=== PATIENT | male | born 2000 ===

== ENCOUNTER 2021-12-22 01:29 | Emergency (ER) | payer OTHER ==
[2021-12-22 05:36] LABS: Urine Blood Negative (Negative); Urine Glucose Negative (Negative); Urine Protein Negative (Negative); Urine pH 7.5 (5.0-7.0)
[2021-12-22 05:38] LABS: Absolute Lymphocytes (CBC) 2.9 K/uL (0.7-4.9); Hematocrit 44.7 % (39.6-49.0); Lymphocytes % 47.7 % (15.3-44.8); MPV 9.2 fL (7.6-11.3); RBC Red Blood Cell Count 5.37 M/uL (4.33-5.43)
[2021-12-22 05:53] LABS: Barbiturates NEGATIVE (NEGATIVE); Benzodiazepines NEGATIVE (NEGATIVE); Cocaine NEGATIVE (NEGATIVE); METHAMPHETAM POSITIVE (NEGATIVE); Methadone NEGATIVE (NEGATIVE); Opiates NEGATIVE (NEGATIVE); Phencyclidine NEGATIVE (NEGATIVE); THC Cannibis NEGATIVE (NEGATIVE)
[2021-12-22 06:02] LABS: ALT/SGPT 32 U/L (12-78); AST/SGOT 23 U/L (15-37); Albumin 4.1 g/dL (3.4-5.0); Alkaline Phosphatase 74 U/L (45-117); BUN Blood Urea Nitrogen 11 mg/dL (7-18); Bicarbonate 25 mmol/L (21-32); Bilirubin Direct 0.1 mg/dL (0-0.2); Bilirubin Total 0.5 mg/dL (0.2-1.0); Glomerular Filtration Rate 127 ml/min (=/>90); Glucose Level 83 mg/dL (74-106); Protein, Total 7.8 g/dL (6.4-8.2); Sodium Level 138 mmol/L (136-145)
[2021-12-22 06:20] LABS: Troponin High Sensitivity 4.5 pg/mL (<58.9)
--- NOTE | 2021-12-22 07:04 | EDPHYS ---
Physician Documentation [facility] Name: Siva Patel Age: 21 yrs Sex: Male : 2000 Arrival Date: 12/22/2021 Time: 01:31 Bed 19 Private MD: ED Physician Emil Wong HPI: 12/22 04:10 This 21 yrs old Male presents to ER via Ambulatory with complaints of Anxiety, Closed mh7 Head Injury-Adult, Altered Mental Status. 04:10 The patient presents to the emergency department with anxiety, over unknown mh7 circumstances. 04:10 Onset: The symptoms/episode began/occurred last night. mh7 04:10 Past psychiatric history: Prior diagnosis: ADHD. Associated signs and symptoms: mh7 Pertinent negatives: abdominal pain, chest pain, chills, delusions, depression, fever, hallucinations, headache, homicidal ideation, nausea, night sweats, palpitations, paranoia, shortness of breath, substance abuse, suicide ideation, tremor, vomiting. Severity of symptoms: At their worst the symptoms were moderate last night, in the emergency department the symptoms have improved moderately. States that he had a bad day yesterday and was feeling anxious. Admits to hitting his head against his bathroom wall due to frustration. Denies any LOC. Denies any suicidal/homicidal ideation. Denies any auditory or visual hallucinations.. Historical: - Allergies: 01:43 Cats; jb4 01:43 NKDA; jb4 - Home Meds: 01:43 Adderall XR Oral [Active]; jb4 - PMHx: 01:43 ADHD; jb4 - PSHx: 01:43 None; jb4 - Immunization history:: Adult Immunizations up to date. - Social history:: Patient/guardian denies using alcohol, street drugs, Smoking status: Patient denies any tobacco usage or history of. ROS: 04:10 Constitutional: Negative for fever, chills, and weight loss, Eyes: Negative for injury, mh7 pain, redness, and discharge, ENT: Negative for injury, pain, and discharge, Neck: Negative for injury, pain, and swelling, Cardiovascular: Negative for chest pain, palpitations, and edema, Respiratory: Negative for shortness of breath, cough, wheezing, and pleuritic chest pain, Abdomen/GI: Negative for abdominal pain, nausea, vomiting, diarrhea, and constipation, Back: Negative for injury and pain, : Negative for injury, bleeding, discharge, and swelling, MS/Extremity: Negative for injury and deformity, Skin: Negative for injury, rash, and discoloration, Neuro: Negative for headache, weakness, numbness, tingling, and seizure, Psych: Negative for depression, anxiety, suicide ideation, homicidal ideation, and hallucinations, Allergy/Immunology: Negative for hives, rash, and allergies, Endocrine: Negative for neck swelling, polydipsia, polyuria, polyphagia, and marked weight changes, Hematologic/Lymphatic: Negative for swollen nodes, abnormal bleeding, and unusual bruising. Exam: 04:10 Constitutional: This is a well developed, well nourished patient who is awake, alert, mh7 and in no acute distress. 04:10 Eyes: Pupils equal round and reactive to light, extra-ocular motions intact. Lids and lashes normal. Conjunctiva and sclera are non-icteric and not injected. Cornea within normal limits. Periorbital areas with no swelling, redness, or edema. ENT: Nares patent. No nasal discharge, no septal abnormalities noted. Tympanic membranes are normal and external auditory canals are clear. Oropharynx with no redness, swelling, or masses, exudates, or evidence of obstruction, uvula midline. Mucous membranes moist. Neck: Trachea midline, no thyromegaly or masses palpated, and no cervical lymphadenopathy. Supple, full range of motion without nuchal rigidity, or vertebral point tenderness. No Meningismus. Chest/axilla: Normal chest wall appearance and motion. Nontender with no deformity. No lesions are appreciated. Cardiovascular: Regular rate and rhythm with a normal S1 and S2. No gallops, murmurs, or rubs. Normal PMI, no JVD. No pulse deficits. Respiratory: Lungs have equal breath sounds bilaterally, clear to auscultation and percussion. No rales, rhonchi or wheezes noted. No increased work of breathing, no retractions or nasal flaring. Abdomen/GI: Soft, non-tender, with normal bowel sounds. No distension or tympany. No guarding or rebound. No evidence of tenderness throughout. Back: No spinal tenderness. No costovertebral tenderness. Full range of motion. Skin: Warm, dry with normal turgor. Normal color with no rashes, no lesions, and no evidence of cellulitis. MS/ Extremity: Pulses equal, no cyanosis. Neurovascular intact. Full, normal range of motion. Neuro: Awake and alert, GCS 15, oriented to person, place, time, and situation. Cranial nerves II-XII grossly intact. Motor strength 5/5 in all extremities. Sensory grossly intact. Cerebellar exam normal. Normal gait. Psych: Awake, alert, with orientation to person, place and time. Behavior, mood, and affect are within normal limits. 04:10 Head/face: Noted is tenderness, that is moderate, of the top of head and left temporal area. Vital Signs: 01:37 BP 140 / 109; Pulse 86; Resp 16; Temp 98.3(O); Pulse Ox 100% on R/A; Height 6 ft. 4 in. jb4 (193.04 cm) (R); Pain 4/10; 07:06 BP 123 / 73; Pulse 63; ke1 Gillespie Coma Score: 01:37 Eye Response: spontaneous(4). Verbal Response: confused(4). Motor Response: obeys jb4 commands(6). Total: 14. MDM: 07:00 Differential diagnosis: drug withdrawal. acute psychotic break, depression, psychosis mh7 secondary to non-compliance. Data reviewed: vital signs, nurses notes, lab test result(s), CBC, electrolytes, EKG, radiologic studies, CT scan. Data interpreted: Pulse oximetry: on room air is 100 %. Interpretation: normal. Counseling: I had a detailed discussion with the patient and/or guardian regarding: the historical points, exam findings, and any diagnostic results supporting the discharge/admit diagnosis, the presence of at least one elevated blood pressure reading (>120/80) during this emergency department visit, lab results, radiology results, the need for outpatient follow up, to return to the emergency department if symptoms worsen or persist or if there are any questions or concerns that arise at home. Response to treatment: the patient's symptoms have resolved after treatment, the patient's blood pressure is in an acceptable range, mental status has returned to baseline, the patient no longer shows bradycardia, the patient is not short of breath, the patient is not tachycardic, the patient's pain is gone, the patient's temperature has normalized. 07:03 Patient medically screened. [facility] 12/22 04:39 Order name: Acetaminophen; Complete Time: 07:00 12/22 04:39 Order name: Basic Metabolic Panel; Complete Time: 07:00 12/22 04:39 Order name: CBC with Diff; Complete Time: 05:55 [facility] 12/22 04:39 Order name: ETOH Level; Complete Time: 05:55 [facility] 12/22 04:39 Order name: Hepatic Function; Complete Time: 07:00 12/22 04:39 Order name: PT-INR 12/22 04:38 Order name: CT Head Brain wo Cont 12/22 04:39 Order name: Ptt, Activated 12/22 04:39 Order name: Salicylate; Complete Time: 07:00 12/22 04:39 Order name: Urine Drug Screen; Complete Time: 05:55 [facility] 12/22 04:39 Order name: EKG; Complete Time: 04:39 12/22 05:36 Order name: Urine Dipstick-Ancillary; Complete Time: 05:55 [facility] 12/22 05:55 Order name: Creatine Phosphokinase; Complete Time: 07:00 [facility] 12/22 05:55 Order name: Troponin High Sensitivity; Complete Time: 07:00 [facility] 12/22 04:39 Order name: EKG - Nurse/Tech; Complete Time: 05:52 12/22 04:39 Order name: IV Saline Lock; Complete Time: 05:38 12/22 04:39 Order name: Labs collected and sent; Complete Time: 05:38 12/22 04:39 Order name: Suicide Precautions; Complete Time: 05:38 12/22 04:39 Order name: Suicide Screening (Novi); Complete Time: 05:38 12/22 04:39 Order name: Urine Dipstick-Ancillary (obtain specimen); Complete Time: 05:38 12/22 07:16 Order name: EKG Electrocardiogram EDMS Administered Medications: No medications were administered Disposition Summary: 12/22/21 07:03 Discharge Ordered Location: Home [facility] Problem: new [facility] Symptoms: have improved [facility] Condition: Stable [facility] Diagnosis - Adjustment disorder with anxiety [facility] - Contusion of unspecified part of head [facility] Followup: [facility] - With: Private Physician - When: 1 - 2 days - Reason: Worsening of condition, Recheck today's complaints, Continuance of care, Re-evaluation by your physician Discharge Instructions: - Discharge Summary Sheet 7 - Adjustment Disorder, Adult mh7 - Facial or Scalp Contusion, [id number] [facility] Forms: - Medication Reconciliation Form [facility] - Thank You Letter 7 - Antibiotic Education 7 - Prescription Opioid Use [facility] Signatures: Dispatcher [employer] EDUbaldo Neri RN RN jb4 Emil Wong MD MD mh7 Quique Nicholson RN RN ke1 Corrections: (The following items were deleted from the chart) 05:23 05:21 This 21 yrs old Male presents to ER via Ambulatory with complaints of Anxiety, mh7 Closed Head Injury-Adult, Altered Mental Status. [facility]
--- NOTE | 2021-12-22 07:04 | ER ---
Nurse's Notes [facility] Name: Siva Patel Age: 21 yrs Sex: Male : 2000 Arrival Date: 12/22/2021 Time: 01:31 Bed 19 Private MD: Diagnosis: Adjustment disorder with anxiety;Contusion of unspecified part of head Presentation: 12/22 01:37 Chief complaint: Patient states: I just had a bad night. I did not hit my head. Friend arunKatharina and/or Co-Worker states: He had a major panic attack, he ran to the bathroom. He was screaming we heard a lot of banging. He was holding the door shut against us. He finally let us in. He appeared to have ripped out some of his hair. This is the first time he has ever had one this bad. He has not spoken since. Coronavirus screen: At this time, the client does not indicate any symptoms associated with coronavirus-19. Ebola Screen: No symptoms or risks identified at this time. Mechanism of Injury: Mechanism of Injury: No head injury observed by friends, pt denying hitting his head.. Initial Sepsis Screen: Does the patient meet any 2 criteria? No. Patient's initial sepsis screen is negative. Does the patient have a suspected source of infection? No. Patient's initial sepsis screen is negative. Risk Assessment: Do you want to hurt yourself or someone else? Patient reports desire/thoughts of hurting themselves or someone else. Provider notified. Onset of symptoms was December 22, 2021. Transition of care: patient was not received from another setting of care. 01:37 Method Of Arrival: Ambulatory 4 01:37 Acuity: GENE 2 jb4 07:36 Mechanism of Injury: resulted from a direct blow. ap3 Triage Assessment: 01:43 General: Appears in no apparent distress. comfortable, Behavior is calm, flat. Pain: jb4 Complains of pain in headache Pain does not radiate. Pain currently is 4 out of 10 on a pain scale. Neuro: Level of Consciousness is awake, alert, obeys commands, Oriented to person, situation, Reports headache. Cardiovascular: Patient's skin is warm and dry. Respiratory: Airway is patent Respiratory effort is even, unlabored, Respiratory pattern is regular, symmetrical. Derm: Skin Skin is pink, warm \T\ dry. Musculoskeletal: Circulation, motion, and sensation intact. Range of motion: intact in all extremities. Historical: - Allergies: 01:43 Cats; jb4 01:43 NKDA; jb4 - Home Meds: :43 Adderall XR Oral [Active]; jb4 - PMHx: 01:43 ADHD; jb4 - PSHx: 01:43 None; jb4 - Immunization history:: Adult Immunizations up to date. - Social history:: Patient/guardian denies using alcohol, street drugs, Smoking status: Patient denies any tobacco usage or history of. Screenin:43 Abuse screen: Denies threats or abuse. Nutritional screening: No deficits noted. ke1 Tuberculosis screening: No symptoms or risk factors identified. Fall Risk None identified. Assessment: 02:49 General: Appears in no apparent distress. Behavior is flat, quiet. Neuro: Kwan ke1 Agitation-Sedation Scale (RASS): 0 - Alert and Calm Level of Consciousness is awake, alert. 05:36 Reassessment: Patient appears in no apparent distress at this time. General: Behavior ke1 is calm, inappropriate for age, Patient cries because of IV insertion, afraid of needle.. 07:46 General: patient given his personal belongings from security. nurse and patient ap3 verified all belongings were present. patient given privacy to dress into his own clothing and make a phone call for a ride. . Vital Signs: 01:37 BP 140 / 109; Pulse 86; Resp 16; Temp 98.3(O); Pulse Ox 100% on R/A; Height 6 ft. 4 in. jb4 (193.04 cm) (R); Pain 4/10; 07:06 BP 123 / 73; Pulse 63; ke1 Mackenzie Coma Score: 01:37 Eye Response: spontaneous(4). Verbal Response: confused(4). Motor Response: obeys jb4 commands(6). Total: 14. ED Course: 01:31 Patient arrived in ED. bp1 01:43 Triage completed. jb4 01:47 Arm band placed on right wrist. jb4 02:25 Quique Nicholson, RN is Primary Nurse. ke1 02:25 Safety Checks: Personal items have been removed. The door is open or patient has been ke1 placed in a hallway bed/chair. A family member and/or friend is present and encouraged to stay. Sitter present at this time. Other: roommate with patient. 02:43 Bed in low position. ke1 02:59 Emil Wong MD is Attending Physician. 7 04:58 CT Head Brain wo Cont In Process Unspecified. EDMS 05:36 Inserted saline lock: 20 gauge in right antecubital area, using aseptic technique. ke1 07:36 No provider procedures requiring assistance completed. IV discontinued, intact, ap3 bleeding controlled, No redness/swelling at site. Pressure dressing applied. Administered Medications: No medications were administered Medication: 07:36 VIS not applicable for this client. ap3 Outcome: 07:03 Discharge ordered by . [facility] 07:48 Discharged to home ambulatory. ap3 07:48 Condition: good 07:48 Discharge instructions given to patient, Instructed on discharge instructions, follow up and referral plans. safety practices, following up with therapist Demonstrated understanding of instructions, follow-up care. 08:31 Patient left the ED. ap3 Signatures: Dispatcher [employer] EDOR Ubaldo Goldberg, RN RN jb4 Molly Sanchez RN RN ap3 Yas Dumont [facility] Emil Wong MD MD 7 Quique Nicholson RN RN ke1
[2021-12-22 07:27] LABS: Protime INR 1.08
[2021-12-22 08:38] VITALS: TEMP 98.3; O2SAT 100
[2021-12-22 08:40] VITALS: BP 123/73
--- NOTE | 2021-12-22 13:32 | EKG ---
Test Date: 2021-12-22 Test Time: 05:43:48 Director Of State: RONA MEASUREMENT RESULTS: Intervals: Rate: 52 SD: 182 QRSD: 102 QT: 426 QTc: 396 [place]: P: -6 SD: 182 QRS: 90 T: 80 INTERPRETIVE STATEMENTS: Sinus bradycardia with sinus arrhythmia Rightward axis ST elevation, consider early repolarization, pericarditis, or injury Nonspecific ST abnormality Abnormal ECG No previous ECG available for comparison Electronically Signed On 12-22-21 13:31:33 CDT by Giovani Hooker
--- NOTE | 2021-12-22 13:32 | EKG ---
Test Date: 2021-12-22 Test Time: 05:44:14 Service Planner: RONA MEASUREMENT RESULTS: Intervals: Rate: 57 UT: 192 QRSD: 104 QT: 428 QTc: 416 [place]: P: 43 UT: 192 QRS: 90 T: 80 INTERPRETIVE STATEMENTS: Sinus bradycardia with sinus arrhythmia Rightward axis ST elevation, consider early repolarization, pericarditis, or injury Nonspecific ST abnormality Abnormal ECG Compared to ECG 12/22/2021 05:43:48 No significant changes Electronically Signed On 12-22-21 13:31:26 CDT by Giovani Hooker
--- NOTE | 2021-12-22 16:07 | RAD REPORT ---
EXAM DESCRIPTION: CT - Head Brain Wo Cont - 12/22/2021 6:35 am CLINICAL HISTORY: The patient is 21 years old and is Male; Head trauma, skull fracture or hematoma TECHNIQUE: Axial computed tomography images of the head/brain without intravenous contrast. Sagitt al and coronal reformatted images were created and reviewed. This CT exam was performed using one o r more of the following dose reduction techniques: automated exposure control, adjustment of the mA and/or kV according to patient size, and/or use of iterative reconstruction technique. COMPARISON: No relevant prior studies available. FINDINGS: Brain: Unremarkable. No hemorrhage. No significant white matter disease. No edema. Ventricles: Unremarkable. No ventriculomegaly. Bones/joints: Unremarkable. No acute skull fracture. Soft tissues: Unremarkable. Sinuses: Unremarkable as visualized. No acute sinusitis. Mastoid air cells: No significant mastoid fluid. IMPRESSION: No intracranial hemorrhage. No acute skull fracture. Electronically signed by: Amina Saenz MD 12/22/2021 5:32 AM CDT Due to temporary technical issues with the PACS/Fluency reporting system, reports are being signed by the in house radiologist without review as a courtesy to ensure prompt reporting. The interpreting r adiologist is fully responsible for the content of the report.
== END 2021-12-22 08:31 | disposition home or self-care (01) ==
LOC: ER 01:29
DX: F43.22 Adjustment disorder with anxiety (principal); S00.93XA Contusion of unspecified part of head, initial encounter; W22.8XXA Striking against or struck by other objects, initial encounter; Y93.89 Activity, other specified; Y92.9 Unspecified place or not applicable; Y99.0 Civilian activity done for income or pay; F90.9 Attention-deficit hyperactivity disorder, unspecified type
CPT/HCPCS: 36415; 70450; 80048; 80076; 80307; 80320; 80329; 81003; 82550; 84484; 85025; 85610; 85730; 93005; 99283